=== PATIENT | male | born 1970 | race Two or more races ===

== ENCOUNTER 2023-06-19 14:06 | Inpatient (IN) | payer OTHER ==
[~2023-06-19] VITALS: Ht 162.6 cm; Wt 86.2 kg
[2023-06-19] MEDS ORDERED: PEPCID AC20 MG (14:21)
[2023-06-19 19:11] LABS: HEMATOCRIT 48.5 % (39.0-48.0); MEAN CELL VOLUME 83.9 fL (80.0-100.00); MEAN CORPUSCULAR HEMOGLOBIN 29.4 pg (27.00-32.0); PLATELET COUNT 303 K/uL (150-450); RED BLOOD COUNT 5.78 M/uL (4.00-6.00); RED CELL DISTRIBUTION WIDTH 13.2 % (11.5-14.5)
[2023-06-19 19:31] LABS: INR 1.03; PARTIAL THROMBOPLASTIN TIME 36.2 SECONDS (22.0-34.0); PROTHROMBIN TIME 10.8 SECONDS (9.0-11.5)
[2023-06-19 19:53] LABS: ALBUMIN 4.4 gm/dL (3.4-5.0); BILIRUBIN TOTAL 1.04 mg/dL (0.3-1.2); CALCIUM 9.6 mg/dL (8.5-10.1); CREATININE SERUM 1.01 mg/dL (0.70-1.30); GFR 77.27; GLOBULINA 3.9 G/DL (2.4-3.5); POTASSIUM 3.66 mEq/L (3.5-5.1); TOTAL PROTEIN 8.3 gm/dL (6.4-8.2)
[2023-06-20 01:14] LABS: URINE APPEARANCE Clear; URINE BILIRRUBIN Negative (NEGATIVE); URINE BLOOD Negative; URINE COLOR Yellow; URINE GLUCOSE Negative (NEGATIVE); URINE LEUKOCYTE Negative; URINE NITRATE Negative; URINE PROTEIN Negative (NEGATIVE); URINE UROBILINOGEN 0.2 E.U./dl
[2023-06-20 01:18] LABS: URINE RBC 5.4 uL (0.0-20.8); URINE WBC 2.6 uL (0.0-23.2)
[2023-06-20 01:23] LABS: URINE BACTERIA 3.7 uL (0.0-1933)
[2023-06-20 02:23] LABS: ABG PH 7.432 (7.35-7.45); ABG PO2 84.5 mmHg (80-100); ABG pCO2 40.9 mmHg (35-45); BASE EXCESS 2.2 mmol/l; BICARBONATE 26.6 mmol/l (23-25); SaO2 96.7 %
[2023-06-20 02:24] LABS: Tco2 27.9 mmol/l; allen test SATISFACTORY; o2 21 %; puncture site RADIAL LEFT
[2023-06-22 08:10] LABS: HOMOCYSTEINE 7.4 umol/L (0.0-14.5)
[2023-06-22 16:10] LABS: ERYTHROPOIETIN 7.6 mIU/mL (2.6-18.5)
[2023-06-22 18:06] LABS: ANTI CARDIO IGG < 9 GPL U/mL (0-14); ANTI CARDIO IGM 9 MPL U/mL (0-12)
== END 2023-06-22 09:18 | disposition home or self-care (01) | DRG 301 ==
LOC: ER 14:07 → MEDI 21:21
PROVIDERS: Emergency Medicine; General Practice; Internal Medicine Hematology & Oncology; ADMIT Internal Medicine; ATTEND Internal Medicine
DX: I82.432 Acute embolism and thrombosis of left popliteal vein (principal); D75.1 Secondary polycythemia; Z20.822 Contact with and (suspected) exposure to COVID-19

== ENCOUNTER → 2024-09-27 | Emergency (ER) | payer OTHER ==
[~2024-09-27] VITALS: Ht 162.6 cm; Wt 79.4 kg
[~2024-09-27] MED LIST: PEPCID AC20 MG
== END | disposition home or self-care (01) ==
LOC: ER 20:32
DX: M79.662 Pain in left lower leg (principal)

== ENCOUNTER 2024-09-29 07:50 | Outpatient (CLI) | payer OTHER | END 2024-09-29 07:51 | disposition home or self-care (01) | LOC: NUCLEAR 07:50 | DX: I82.409 Acute embolism and thrombosis of unspecified deep veins of unspecified lower extremity (principal) ==